=== PATIENT | male | born 1990 | race Caucasian/White ===

== ENCOUNTER → 2017-01-13 | Outpatient (CLI) | payer OTHER ==
[~2017-01-13] MED LIST: ATOR10TA PO
[2017-01-13] MEDS: GADOBUTROL 7.5 MMOL/7.5 ML VIAL INT ART ONE (15:10)
[2017-01-13] MEDS: IOHEXOL 300 MG/ML 10ML VIAL. INT ART ONE (15:10)
[2017-01-13] MEDS: LIDOCAINE 1% Multi-Dose 20 ML VIAL. ID ONE (15:10)
--- NOTE | 2017-01-13 16:15 | KCIC ---
Right hip injection using fluoroscopic guidance, prior to MR. HISTORY: Hip pain. Increasing for 3 or 4 years. TECHNIQUE: The procedure was explained to the patient as were potential risks, including among others infection, bleeding or allergic reaction. All questions were answered. Informed written and verbal consent was obtained. The hip region was prepped and draped in the usual sterile manner. Following administration of local anesthetic, a 22-gauge needle was advanced into the anterior hip. Following negative aspiration, 12 cc of a solution of 5cc Omnipaque-300 contrast, 5 cc 1% lidocaine, 10 cc normal saline, and 0.1 cc gadolinium was injected without difficulty. The needle was removed. There was good hemostasis at the injection site. The patient left in stable condition without immediate complication. The patient was given postprocedural instructions, and instructed to contact us or the ER if there are any complications. A single spot image is obtained. FLUOROSCOPY TIME:?23 seconds Electronically signed by: Fausto Robert MD (01/13/2017 4:12 PM) [email or web address]
--- NOTE | 2017-01-13 16:15 | KCIC ---
MR arthrogram of the right hip Indication: Right hip pain for 3 or 4 years, gradually worsening. Technique: Standard 4 plane sequences are obtained. Intra-articular contrast was injected by different radiologist, who will dictate that procedure as a separate report. Findings: Bones: No bone lesion, acute fracture or acute bone marrow edema. No femoral head osteonecrosis. Joint: No advanced DJD or acute articular cartilage defect Labrum: Small cleft at the posterior labrum. No evidence of anterior or superior labral tear. Gluteus minimus and medius tendon: Intact Hamstring tendon: Intact Iliopsoas tendon: Intact Rectus femoris tendon attachment: Intact Soft tissues:No significant abnormality. Impression:Small cleft or tear at the posterior labrum. Anterior and superior labrum are intact. Electronically signed by: Fausto Robert MD (01/13/2017 4:11 PM) [id number]
== END | disposition home or self-care (01) ==
LOC: KCIC 13:55
PROVIDERS: ATTEND Physician Assistant Medical
DX: M25.551 Pain in right hip (principal)
CPT/HCPCS: 73525; 73722; A9585; Q9967

== ENCOUNTER → 2019-01-14 | Outpatient (CLI) | payer OTHER ==
[~2019-01-14] MED LIST changes: +CONTRAST GIVEN. MC PRN; +IOHEXOL 300 MG/ML 100ML VIAL. IV ONE
--- NOTE | 2019-01-14 17:49 | KCIC ---
Examination: CT SOFT TISSUE NECK W/CONTRAST History: Soft tissue lesion on an outside x-ray exam. Comparison/Correlation: None Findings: Axial images of the neck were obtained following IV contrast. Sagittal and coronal reformatted images were provided. Imaging was performed from the mid orbital level to the superior aortic arch level. Partial opacification ethmoid air cells and maxillary sinuses noted. Partial aspiration of right sphenoid sinus. Parotid and submandibular glands are unremarkable. Multiple bilateral cervical lymph nodes are present but not enlarged. Pharynx is symmetric. In the vallecula, there is an irregularly marginated soft tissue density structure that extends along left lateral margin of the epiglottis anteriorly. It measures approximately 3 cm transverse by 1.2 cm anteroposterior by 1.8 cm longitudinal. Thyroid gland is unremarkable. True and false vocal cords are symmetric. Bony structures are unremarkable. Partially visualized lung apices are unremarkable. Impression: Mass lesion within the vallecula. Direct visualization is recommended. PQRS Compliance Statement: One or more of the following individualized dose reduction techniques were utilized for this examination: 1. Automated exposure control 2. Adjustment of the mA and/or kV according to patient size 3. Use of iterative reconstruction technique Electronically signed by: Vahid Sarmiento MD (01/14/2019 5:46 PM) [facility]
== END | disposition home or self-care (01) ==
LOC: KCIC CT 15:08
PROVIDERS: ATTEND Family Medicine Sports Medicine
DX: J38.7 Other diseases of larynx (principal)
CPT/HCPCS: 70491; Q9967

== ENCOUNTER → 2019-01-15 | Outpatient (CLI) | payer OTHER ==
[~2019-01-15] MED LIST changes: -CONTRAST GIVEN. MC PRN; -IOHEXOL 300 MG/ML 100ML VIAL. IV ONE; +LISI10TA2 PO
--- NOTE | 2019-01-15 15:06 | KCIC ---
Examination: MRI of the right knee without contrast HISTORY: History of right knee pain, swelling COMPARISON: None available TECHNIQUE: Multiplanar, multisequence MR imaging of the right knee was performed without contrast. FINDINGS: The anterior cruciate ligament, posterior cruciate ligament appear intact. The medial meniscus, lateral meniscus appear intact. The medial collateral ligament is intact. Lateral collateral ligamentous complex including the fibular collateral ligament, biceps femoris tendon, popliteus appear intact. Extensor mechanism appears intact. Medial retinaculum, lateral retinaculum appears intact. Minimal knee joint effusion. IMPRESSION: No evidence of internal derangement of the knee. Electronically signed by: Werner Packer MD (01/15/2019 3:03 PM) [id number]
== END | disposition home or self-care (01) ==
LOC: KCIC MRI 13:49
PROVIDERS: ATTEND Physician Assistant Medical
DX: M25.461 Effusion, right knee (principal); M79.89 Other specified soft tissue disorders
CPT/HCPCS: 73721

== ENCOUNTER → 2019-01-21 | Outpatient (CLI) | payer OTHER ==
[~2019-01-21] MED LIST changes: +0.9 % SODIUM CHLORIDE 10 ML DISP.SYRIN. ID ONE; +GADOTERATE 5 MMOL/10ML VIAL. INT ART ONE; +IOHEXOL 300 MG/ML 50 ML VIAL. INT ART ONE; +LIDOCAINE 1% Multi-Dose 20 ML VIAL. ID ONE
--- NOTE | 2019-01-21 14:51 | KCIC ---
MRI arthrogram of the right hip HISTORY: Right hip pain. History of labral tear. No surgery. TECHNIQUE: Routine 4 plane sequences are obtained after intra-articular contrast injection. FINDINGS: Small cleft at the posterior labrum is again seen, stable since the previous exam. Superior and anterior labrum are intact. Articular cartilage intact. No bone destruction, acute fracture, marrow edema or femoral head osteonecrosis. Gluteus minimus and medius tendon attachments are intact. Hamstring tendon attachment intact. Iliopsoas tendon attachment intact. Rectus femoris tendon attachment intact. No abnormal soft tissue signal intensity. IMPRESSION: 1. Cleft at the posterior labrum is unchanged. Superior and anterior labrum remain intact. 2. No acute or new findings. Electronically signed by: Fausto Robert MD (01/21/2019 2:48 PM) [id number]
--- NOTE | 2019-01-21 14:54 | KCIC ---
Right hip injection using fluoroscopic guidance, prior to MR. HISTORY: Hip pain. Right hip pain. TECHNIQUE: The procedure was explained to the patient as were potential risks, including among others infection, bleeding or allergic reaction. All questions were answered. Informed written and verbal consent was obtained. The hip region was prepped and draped in the usual sterile manner. Following administration of local anesthetic, a 22-gauge needle was advanced into the anterior hip. Following negative aspiration, 12 cc of a solution of 5cc Omnipaque-300 contrast, 5 cc 1% lidocaine, 10 cc normal saline, and 0.1 cc gadolinium was injected without difficulty. The needle was removed. There was good hemostasis at the injection site. The patient left in stable condition without immediate complication. A single spot image is obtained. FLUOROSCOPY TIME:?24 seconds Electronically signed by: Fausto Robert MD (01/21/2019 2:51 PM) [id number]
== END | disposition home or self-care (01) ==
LOC: KCIC 10:25
PROVIDERS: ATTEND Family Medicine Sports Medicine
DX: M25.551 Pain in right hip (principal)
CPT/HCPCS: 27095; 73525; 73722; A9575; Q9967